=== PATIENT | female | born 1970 | race Caucasian/White ===

== ENCOUNTER 2019-07-07 16:05 | Emergency (ER) | payer SELFPAY ==
[2019-07-07 16:07] VITALS: BMI 27.4
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
[2019-07-07 16:15] VITALS: BP 146/88; PULSE 89; RESP 20; TEMP 37; O2SAT 99
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
[2019-07-07 17:54] VITALS: RESP 16
[2019-07-07] MEDS: LORazepam 1 mg Tablet PO (17:54)
[2019-07-07] MEDS: oxyCODONE-APAP 5-325 mg Tablet 1 TAB PO (17:54)
[2019-07-07 18:09] LABS: Basophils # 0.1 10^3/uL (0.0-0.1); Basophils % 0.4 %; Eosinophils % 0.3 %; Hemoglobin 12.7 g/dL (11.5-15.3); Lymphocytes # 1.4 10^3/uL (0.8-4.8); Lymphocytes % 9.5 %; Mean Corpuscular HGB Conc 33.4 g/dL (30.0-36.0); Mean Corpuscular Hemoglobin 29.7 pg (28.0-34.0); Mean Corpuscular Volume 88.8 fL (81-99); Mean Platelet Volume 10.8 fL (7.4-10.4); Monocytes # 0.6 10^3/uL (0.2-0.9); Monocytes % 4.2 %; Neutrophils # 12.2 10^3/uL (1.8-7.7); Neutrophils % 85.1 %; Nucleated Red Blood Cells % 0 %; Platelet Count 279 10^3/cmm (130-400); Red Blood Count 4.28 10^6/uL (4.1-5.3); Red Cell Distribution Width 12.2 % (12.1-15.1); White Blood Count 14.4 10^3/uL (4.0-10.0)
[2019-07-07 18:20] LABS: INR 0.97 (0.8-1.2)
[2019-07-07 18:22] LABS: HCG, Serum Qual Negative (Negative)
[2019-07-07 18:31] LABS: Alanine Aminotransferase 23 U/L (0-33); Albumin Level 4.6 g/dL (3.5-5.2); Alcohol Level 122 mg/dL (0-10); Alkaline Phosphatase 101 IU/L (35-105); Anion Gap 19.5 (5-19); Aspartate Amino Transferase 34 U/L (0-32); Blood Urea Nitrogen 10 mg/dL (6-20); Calcium 9.8 mg/dL (8.5-10.5); Carbon Dioxide 21 mmol/L (22-29); Chloride 103 mmol/L (98-107); Globulin 3.8 g/dL (1.3-4.6); Glomerular Filtration Rate 76.6 mL/min (90-130); Glucose 106 mg/dL (65-115); Potassium 3.5 mmol/L (3.5-5.1); Sodium 140 mmol/L (136-145); Total Protein 8.4 g/dL (6.6-8.7)
[2019-07-07] MEDS: iohexol 300 mg/mL 100 mL Btl IV (18:41)
[2019-07-07 20:01] LABS: Add Urine Microscopic? YES; Bilirubin Urine Neg (NEGATIVE); Blood Urine 2+ (Negative); Glucose Urine UA Norm (Normal); Ketones Urine Negative (Negative); Leukocyte Esterase Urine Negative (Negative); Nitrate Urine Negative (Negative); Protein Urine Neg (Negative); Urine Appearance SL Hazy (CLEAR); Urine Color Yellow (Yellow); Urobilinogen Urine Norm (Negative); pH Urine 7 (5-7)
[2019-07-07 20:12] LABS: Add Urine Culture? Yes; Bacteria Urine 3+; RBC Urine 0-4 /hpf (0-2); WBC Urine 0-4 /hpf (0-5)
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
== END 2019-07-07 22:43 | disposition home or self-care (01) ==
PROVIDERS: Emergency Provider Emergency Medicine; Family Provider Nurse Practitioner
DX: S61.012A Laceration without foreign body of left thumb without damage to nail, initial encounter (principal); S06.0X9A Concussion with loss of consciousness of unspecified duration, initial encounter; S00.83XA Contusion of other part of head, initial encounter; S00.03XA Contusion of scalp, initial encounter; S20.219A Contusion of unspecified front wall of thorax, initial encounter; S02.6 Fracture of mandible; T14.8XXA Other injury of unspecified body region, initial encounter; Y04.2XXA Assault by strike against or bumped into by another person, initial encounter; Y04.1XXA Assault by human bite, initial encounter; Y92.009 Unspecified place in unspecified non-institutional (private) residence as the place of occurrence of the external cause
CPT/HCPCS: 70450; 70486; 71260; 74177; 80053; 80307; 81001; 84703; 85025; 85610; 87077; 87086; 87186; 99283; A9270; Q9967

== ENCOUNTER 2019-07-14 18:37 | Emergency (ER) | payer SELFPAY ==
[2019-07-14 18:40] VITALS: BP 192/132; PULSE 107; RESP 15; TEMP 36.8; O2SAT 96; BMI 27.8
--- NOTE | 2019-07-14 19:09 | PC.NURSE ---
Report received from ROSEMARY Wesley and care transferred to ROSEMARY Damon
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
[2019-07-14 19:16] VITALS: BP 173/97; PULSE 93; RESP 16; O2SAT 97
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
[2019-07-14 20:23] VITALS: RESP 16
[2019-07-14] MEDS: morphine 4 mg/mL SDV 1 mL IM ×2 (20:23→21:45)
[2019-07-14 21:32] VITALS: BP 176/94; PULSE 88; RESP 16; O2SAT 99
[2019-07-14 21:45] VITALS: RESP 16
[2019-07-14] MEDS: HYDROcodone-acetaminophen 10-325 mg Tablet 2 TAB PO (21:45)
[2019-07-14 22:02] VITALS: BP 124/70; PULSE 102; RESP 16; O2SAT 95
== END 2019-07-14 22:03 | disposition home or self-care (01) ==
PROVIDERS: Emergency Provider Physician Assistant; Family Provider Nurse Practitioner
DX: G89.18 Other acute postprocedural pain (principal); R68.84 Jaw pain
CPT/HCPCS: 96372; 99281; 99283; J2270

== ENCOUNTER 2019-07-20 19:48 | Emergency (ER) | payer SELFPAY ==
[2019-07-20 19:51] VITALS: BP 178/128; PULSE 112; RESP 18; TEMP 36.5; O2SAT 96; BMI 27.4
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
[2019-07-20] MEDS: lidocaine 1% INJ 20 mL INTRADERMA (21:05)
[2019-07-20 21:12] VITALS: BP 178/128; PULSE 81; RESP 16; O2SAT 94
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
[2019-07-20 21:30] VITALS: BP 170/100; PULSE 92; RESP 16; O2SAT 97
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
== END 2019-07-20 22:00 | disposition home or self-care (01) ==
PROVIDERS: Emergency Provider Emergency Medicine; Family Provider Nurse Practitioner
DX: S61.212A Laceration without foreign body of right middle finger without damage to nail, initial encounter (principal); S00.83XA Contusion of other part of head, initial encounter; S02.69XD Fracture of mandible of other specified site, subsequent encounter for fracture with routine healing; Y04.2XXA Assault by strike against or bumped into by another person, initial encounter; Y92.003 Bedroom of unspecified non-institutional (private) residence as the place of occurrence of the external cause; Z98.890 Other specified postprocedural states
CPT/HCPCS: 12002; 70450; 70486; 73120; 99282; 99283; J2001

== ENCOUNTER 2019-07-25 06:49 | Emergency (ER) | payer SELFPAY ==
[2019-07-25 07:00] VITALS: BP 144/110; PULSE 80; RESP 15; TEMP 36.7; O2SAT 100; BMI 27.4
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
== END 2019-07-25 07:34 | disposition home or self-care (01) ==
PROVIDERS: Emergency Provider Nurse Practitioner Family; Family Provider Nurse Practitioner
DX: K04.7 Periapical abscess without sinus (principal); F17.200 Nicotine dependence, unspecified, uncomplicated
CPT/HCPCS: 99281

== ENCOUNTER 2019-08-03 20:49 | Emergency (ER) | payer SELFPAY ==
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
--- NOTE | 2019-08-03 20:59 | XR_ITS ---
WS: [id number] Portable AP upright chest, 08/03/2019 Clinical Data: post intubation Comparison: None. Findings: No nodules, masses or effusions are seen. The heart is normal. The pulmonary vascularity is not increased. No pneumonia or pneumothorax is seen. The endotracheal tube is above the michael. The nasogastric tubes appears to be in the esophagus and ends in the stomach. Monitor leads are on the ch est wall. XR/XR chest 1V portable [id number] Impression: 1. Satisfactory placement of endotracheal tube and nasogastric tube. 2. Negative for acute cardiopulmonary disease.
--- NOTE | 2019-08-03 21:00 | PC.NURSE ---
Received patient to er via ems with complaint of allergic reaction. Patient presents with hives over arms and abdomen , gasping repirations but is awake. Tougue is swollen, patient received 0.3 epi iv in route to hospital per ems. Iv patent to right hand per ems. Patient placed on monitor, bp on o2 per non rebreather mask. in room to place et tube.
[2019-08-03] MEDS: fentaNYL 50 mcg/mL INJ 2mL 100 MCG IVP (21:12)
[2019-08-03] MEDS: propofol 1,000 MG/100 ML INJ 10 MG (21:14)
[2019-08-03 21:15] VITALS: RESP 12
[2019-08-03] MEDS: LORazepam 2 mg/mL INJ 1 mL 1 MG IVP (21:15)
[2019-08-03 21:26] VITALS: BP 190/121; PULSE 78; RESP 15; TEMP 36.9; O2SAT 100; BMI 23.6
[2019-08-03] MEDS: famotidine 20 mg/2 mL INJ 40 MG IVP (21:48)
[2019-08-03] MEDS: diphenhydrAMINE 50 mg/mL SDV 1mL IVP (21:48)
--- NOTE | 2019-08-03 21:55 | PC.NURSE ---
EKG done at 2150 and shown to ER doctor
[2019-08-03 22:34] VITALS: BP 126/81; PULSE 75; RESP 14
[2019-08-03] MEDS: labetalol 5 mg/mL SDV 20mL 10 MG IVP (22:35)
[2019-08-03 22:36] LABS: Basophils % 0.3 %; Eosinophils # 0.1 10^3/uL (0.0-0.8); Eosinophils % 2.2 %; Hematocrit 32.9 % (37.0-47.0); Hemoglobin 10.6 g/dL (11.5-15.3); Lymphocytes # 2.2 10^3/uL (0.8-4.8); Mean Corpuscular HGB Conc 32.2 g/dL (30.0-36.0); Mean Corpuscular Hemoglobin 29.8 pg (28.0-34.0); Mean Corpuscular Volume 92.4 fL (81-99); Mean Platelet Volume 10.2 fL (7.4-10.4); Monocytes # 0.3 10^3/uL (0.2-0.9); Monocytes % 5.1 %; Neutrophils # 3.3 10^3/uL (1.8-7.7); Neutrophils % 55.1 %; Nucleated Red Blood Cells % 0 %; Platelet Count 261 10^3/cmm (130-400); Red Blood Count 3.56 10^6/uL (4.1-5.3); Red Cell Distribution Width 12.5 % (12.1-15.1)
[2019-08-03 22:37] VITALS: BP 126/81; PULSE 75; RESP 14; O2SAT 99
[2019-08-03 22:45] VITALS: BP 160/92; PULSE 75; RESP 14; O2SAT 100
[2019-08-03 22:50] LABS: Alanine Aminotransferase 17 U/L (0-33); Albumin Level 3.2 g/dL (3.5-5.2); Alkaline Phosphatase 126 IU/L (35-105); Anion Gap 14.3 (5-19); Aspartate Amino Transferase 27 U/L (0-32); Blood Urea Nitrogen 21 mg/dL (6-20); Calcium 8.4 mg/dL (8.5-10.5); Carbon Dioxide 22 mmol/L (22-29); Chloride 109 mmol/L (98-107); Globulin 3.4 g/dL (1.3-4.6); Glomerular Filtration Rate 106.7 mL/min (90-130); Glucose 86 mg/dL (65-115); Osmolality Calculated 290 mOsm/kg (285-295); Potassium 3.3 mmol/L (3.5-5.1); Sodium 142 mmol/L (136-145); Total Bilirubin 0.7 mg/dL (0.15-1.2); Total Protein 6.6 g/dL (6.6-8.7)
[2019-08-03 23:00] VITALS: BP 142/87; PULSE 74; RESP 14; O2SAT 100
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
[2019-08-03 23:33] LABS: HCG, Serum Qual Negative (Negative)
[2019-08-04 00:11] LABS: Bilirubin Urine Neg (NEGATIVE); Blood Urine 2+ (Negative); Glucose Urine UA Norm (Normal); Ketones Urine Negative (Negative); Leukocyte Esterase Urine Negative (Negative); Nitrate Urine Negative (Negative); Protein Urine Neg (Negative); Urine Appearance Clear (CLEAR); Urine Color Yellow (Yellow); Urobilinogen Urine Norm (Negative); pH Urine 6 (5-7)
[2019-08-04 00:18] LABS: Amphetamines Screen Urine Positive (Negative); Barbiturates Screen Urine Negative (Negative); Benzodiazepines Screen Urine Negative (Negative); Cocaine Screen Urine Negative (Negative); Opiate Screen Urine Negative (Negative); PCP Screen Urine Negative (Negative); THC Screen Urine Negative (Negative)
[2019-08-04 00:20] LABS: Hyaline Casts Urine 0-4
[2019-08-04 00:21] LABS: RBC Urine 25-40 /hpf (0-2); WBC Urine 0-4 /hpf (0-5)
[2019-08-04 00:22] LABS: Add Urine Culture? No; Bacteria Urine TRACE
== END 2019-08-03 23:17 | disposition short-term general hospital (02) ==
PROVIDERS: Emergency Provider Emergency Medicine; Family Provider Nurse Practitioner
DX: T78.2XXA Anaphylactic shock, unspecified, initial encounter (principal); F17.200 Nicotine dependence, unspecified, uncomplicated
CPT/HCPCS: 12345; 31500; 36415; 71045; 80053; 80306; 81001; 84703; 85025; 94002; 94799; 96365; 96366; 96367; 96374; 96375; 96376; 99283; 99291; J1200; J2060; J2704; J2930; J3010; J3490

== ENCOUNTER 2019-08-10 14:43 | Emergency (ER) | payer SELFPAY ==
[2019-08-10 14:44] VITALS: RESP 24; TEMP 37.1; BMI 27.4
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
[2019-08-10] MEDS: ketorolac 30 mg/mL INJ 15 MG IVP (15:06)
[2019-08-10 15:07] VITALS: RESP 16
[2019-08-10] MEDS: HYDROmorphone 1 mg/mL INJ 1 mL IVP ×3 (15:07→19:39)
[2019-08-10] MEDS: sodium chloride 0.9% 1,000 ML 999 ML IV (15:10)
[2019-08-10 15:32] VITALS: RESP 18; O2SAT 96
[2019-08-10 16:17] VITALS: RESP 17; O2SAT 99
[2019-08-10] MEDS: HYDROmorphone 1 mg/mL INJ 1 mL 2 MG IVP (16:17)
[2019-08-10 16:49] LABS: Basophils % 0.2 %; Eosinophils % 0.2 %; Hematocrit 35.8 % (37.0-47.0); Hemoglobin 11.6 g/dL (11.5-15.3); Lymphocytes # 0.8 10^3/uL (0.8-4.8); Lymphocytes % 5.2 %; Mean Corpuscular HGB Conc 32.4 g/dL (30.0-36.0); Mean Corpuscular Hemoglobin 30.4 pg (28.0-34.0); Mean Platelet Volume 9.9 fL (7.4-10.4); Monocytes # 0.9 10^3/uL (0.2-0.9); Monocytes % 5.5 %; Neutrophils # 14.3 10^3/uL (1.8-7.7); Neutrophils % 87.9 %; Nucleated Red Blood Cells % 0 %; Platelet Count 286 10^3/cmm (130-400); Red Blood Count 3.81 10^6/uL (4.1-5.3); Red Cell Distribution Width 12.7 % (12.1-15.1); White Blood Count 16.3 10^3/uL (4.0-10.0)
[2019-08-10 17:10] LABS: Anion Gap 13.3 (5-19); Blood Urea Nitrogen 16 mg/dL (6-20); Calcium 9.3 mg/dL (8.5-10.5); Carbon Dioxide 26 mmol/L (22-29); Chloride 107 mmol/L (98-107); Glomerular Filtration Rate 76.6 mL/min (90-130); Glucose 124 mg/dL (65-115); Osmolality Calculated 294 mOsm/kg (285-295); Potassium 3.3 mmol/L (3.5-5.1); Sodium 143 mmol/L (136-145)
[2019-08-10 19:39] VITALS: RESP 17; O2SAT 99
--- NOTE | 2019-08-10 19:49 | PC.NURSE ---
pt rates pain as a 3 on a scale of 1-10
[2019-08-10 19:50] VITALS: BP 171/111; PULSE 82; RESP 18; O2SAT 99
== END 2019-08-10 20:01 | disposition other institution (70) ==
PROVIDERS: Emergency Provider Nurse Practitioner Family; Family Provider Nurse Practitioner
DX: R05 Cough (principal); T24.212A Burn of second degree of left thigh, initial encounter; T24.201A Burn of second degree of unspecified site of right lower limb, except ankle and foot, initial encounter; T22.012A Burn of unspecified degree of left forearm, initial encounter; X11.8XXA Contact with other hot tap-water, initial encounter
CPT/HCPCS: 12345; 36415; 80048; 85025; 96361; 96374; 96375; 96376; 99282; 99285; J1170; J1885; J7030

== ENCOUNTER 2019-08-18 18:49 | Emergency (ER) | payer SELFPAY ==
[2019-08-18 18:57] VITALS: BP 172/112; PULSE 119; RESP 14; TEMP 36.9; O2SAT 97; BMI 28.3
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
[2019-08-18 19:14] VITALS: BP 168/98; PULSE 104; RESP 16; TEMP 36.9; O2SAT 99
[2019-08-18 20:23] VITALS: BP 142/96; PULSE 116; RESP 16; TEMP 36.8; O2SAT 97
--- NOTE | 2019-08-18 20:50 | PC.NURSE ---
RN reviewed and agrees with assessment
== END 2019-08-18 20:23 | disposition home or self-care (01) ==
PROVIDERS: Emergency Provider Emergency Medicine; Family Provider Nurse Practitioner
DX: Z48.00 Encounter for change or removal of nonsurgical wound dressing (principal); T24.002D Burn of unspecified degree of unspecified site of left lower limb, except ankle and foot, subsequent encounter; T24.001D Burn of unspecified degree of unspecified site of right lower limb, except ankle and foot, subsequent encounter; T31.10 Burns involving 10-19% of body surface with 0% to 9% third degree burns; X12.XXXD Contact with other hot fluids, subsequent encounter
CPT/HCPCS: 12345; 99281; 99282

== ENCOUNTER 2019-09-19 08:33 | Outpatient (CLI) | payer SELFPAY ==
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
--- NOTE | 2019-09-19 08:59 | CT_ITS ---
WS: [id number] CT FACIAL BONES TECHNIQUE: Noncontrast facial bones with coronal and sagittal reformatted images. CLINICAL INFORMATION: OPEN FRACTURE OF RIGHT SIDE MANDIBULAR BODY WITH NONUNION COMPARISON: None. DLP: 1058.[address] scans at [facility] use at least one of these dose optimization techniques: automat ed exposure control; mA and/or kV adjustment per patient size (includes targeted exams where dose is matched to clinical indication); or iterative reconstruction. FINDINGS: Again seen are the left neck and right perisymphyseal mandibular fracture with plate and screw fixati on involving the mandible and maxilla. Stable wire fixation. Hardware appears in good position. Persi stent fracture lines visualized involving the right body of the right mandible with residual lucency. This is unchanged in appearance from July 20, 2019. Associated lucency along the adjacent premol ar. This is increased from previous. Mastoid air cells are well aerated. Paranasal sinuses are well aerated. Small retention cyst left max illary sinus. Chronic nasal septal deviation left to right. Normal posterior nasopharynx. Normal para pharyngeal fat. Partially visualized intracranial contents unremarkable. CT/CT 3D reconstruction [id number] IMPRESSION: 1. Stable appearing postoperative changes plate and screw fixation and wire fi xation involving the mandible and maxilla. 2. 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 Increased lucency around the adjacent premol ar right mandible. 3. Hardware otherwise normal in appearance. 4. Paranasal sinuses and mastoid air cells well aerated. 5. Chronic left right nasal septal deviation measuring 7 mm
== END 2019-09-19 08:34 | disposition home or self-care (01) ==
LOC: RADWPI 08:40
PROVIDERS: Family Provider Nurse Practitioner; Visit Provider Surgery Plastic and Reconstructive Surgery
DX: S02.601A Fracture of unspecified part of body of right mandible, initial encounter for closed fracture (principal); J34.2 Deviated nasal septum; R68.84 Jaw pain; X58.XXXA Exposure to other specified factors, initial encounter
CPT/HCPCS: 70486; 76377

== ENCOUNTER 2019-10-09 10:34 | Emergency (ER) | payer SELFPAY ==
[2019-10-09 10:44] VITALS: BP 169/99; PULSE 72; RESP 17; TEMP 36.9; O2SAT 97; BMI 27.4
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
[2019-10-09 11:04] VITALS: BP 115/75; PULSE 71; RESP 17; O2SAT 98
== END 2019-10-09 11:05 | disposition home or self-care (01) ==
PROVIDERS: Emergency Provider Nurse Practitioner Family
DX: L03.211 Cellulitis of face (principal)
CPT/HCPCS: 12345; 99281; 99282

== ENCOUNTER 2019-10-18 13:37 | Emergency (ER) | payer SELFPAY ==
[2019-10-18 13:39] VITALS: BP 177/106; PULSE 89; RESP 18; TEMP 36.8; O2SAT 99; BMI 27.4
--- NOTE | 2019-10-18 13:56 | CT_ITS ---
WS: [id number] CT HEAD NONCONTRAST HISTORY: trauma TECHNIQUE: Contiguous axial imaging performed through the brain in 2.5 mm imaging. Bone and soft tiss ue windows. Sagittal and coronal reformats reviewed. All CT scans at [facility] use at ast one of these dose optimization techniques: automated exposure control; mA and/or kV adjustment pe r patient size (includes targeted exams where dose is matched to clinical indication); or iterative r econstruction. DLP: 771.22 mGy.cm COMPARISON: 07/07/2019 No acute intracranial hemorrhage, midline shift or mass effect. Mild atrophy and mild chronic microvascular ischemic disease. Ventricles: Normal size with no hydrocephalus. Paranasal sinuses: As visualized are clear. Mastoid air cells: Well pneumatized. Calvarium and scalp: No fracture. Soft tissue contusions centered over the RIGHT orbit and temporal b one. CT/CT head wo con* [id number] IMPRESSION: 1. No acute intracranial hemorrhage or edema. 2. No fracture. 3. Small contusions over the RIGHT orbit, globe and frontal bone.
--- NOTE | 2019-10-18 13:56 | CT_ITS ---
WS: [id number] CT CERVICAL SPINE HISTORY: trauma TECHNIQUE: Contiguous 2.5 mm axial imaging performed through the entire cervical spine. Sagittal and coronal reformats also performed. All CT scans at [facility] use at least one of these do se optimization techniques: automated exposure control; mA and/or kV adjustment per patient size (inc ludes targeted exams where dose is matched to clinical indication); or iterative reconstruction. DLP: 552.27 mGy.cm COMPARISON: 05/20/2019 Straightening of the normal cervical lordosis. Craniocervical articulation is normal. Mild disc space narrowing and desiccation at C5-6 and C6-7. Articular facets are normally aligned. Lateral masses ar e aligned and the odontoid is intact. No acute cervical spine fracture. Lung apices are clear. CT/CT cervical spin wo con* [id number] IMPRESSION: No acute cervical spine fracture.
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
[2019-10-18 15:02] VITALS: BP 177/111; PULSE 77; RESP 18; O2SAT 99
[2019-10-18 15:27] VITALS: RESP 16; O2SAT 100
[2019-10-18] MEDS: morphine 4 mg/mL SDV 1 mL IVP (15:27)
[2019-10-18 15:28] VITALS: BP 177/111; PULSE 66; RESP 16; O2SAT 99
[2019-10-18] MEDS: ondansetron 2 mg/ML SDV 2 mL 4 MG IVP (15:57)
[2019-10-18 17:08] VITALS: BP 149/91; PULSE 68; RESP 18; O2SAT 100
--- NOTE | 2019-10-18 17:11 | PC.NURSE ---
pt asked for crackers. ok'd with Lisa.
[2019-10-18 17:41] VITALS: BP 170/98; PULSE 80; RESP 16; O2SAT 99
== END 2019-10-18 17:41 | disposition home or self-care (01) ==
PROVIDERS: Emergency Provider Physician Assistant
DX: S02.32XA Fracture of orbital floor, left side, initial encounter for closed fracture (principal); Y04.2XXA Assault by strike against or bumped into by another person, initial encounter
CPT/HCPCS: 12345; 70450; 70486; 72125; 96374; 96375; 99283; J2270; J2405

== ENCOUNTER 2020-03-01 09:40 | Outpatient (CLI) | payer SELFPAY ==
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
--- NOTE | 2020-03-01 09:47 | CT_ITS ---
WS: [id number] CT scan of the maxillofacial region. Additional two-dimensional coronal and sagittal reconstruction w as performed. 03/01/2020 Clinical Data: OPEN FX OF R SIDE OF MANDIBULAR BODY W/NONUNION/JAW PAIN Comparison: CT maxillofacial bones, 10/18/2019. DLP: 1256.[address] scans at [facility] use at least one of these dose optimization techniques: automat ed exposure control; mA and/or kV adjustment per patient size (includes targeted exams where dose is matched to clinical indication); or iterative reconstruction. Findings: The screw and plate fixations of the mandibular and maxillary fractures have not changed. There is st ill a fracture line at the right mandible. There is fracture line at the left mandibular angle which was not seen on the prior study. The fracture of the tip of the nasal bone and erosions of the medial aspect of the mandibular condyles remains unchanged. There is nasal septal deviation from left to ri ght There is still a fracture of the left orbital floor with only fat herniation. The left maxillary sinus shows minimal mucoperiosteal thickening. CT/CT facial bones wo con* [id number] Impression: 1. New fracture line at the left angle of mandible. 2. No change in fracture alignment in the body of the right mandible. 3. No change in left orbital floor fracture and fracture of the tip of the nasa l bone. 4. No change in screw and plate fixation of mandibular and maxillary fractures. 5. No change in erosions of the medial mandibular condyles.
== END 2020-03-01 09:41 | disposition home or self-care (01) ==
LOC: CT 09:43
PROVIDERS: Visit Provider Surgery
DX: S02.601 Fracture of unspecified part of body of right mandible (principal); X58.XXXD Exposure to other specified factors, subsequent encounter
CPT/HCPCS: 70486; 76377